=== PATIENT | male | born 1945 | race Caucasian/White ===

== ENCOUNTER 2020-06-29 12:14 | Outpatient (CLI) | payer MEDICARE | END 2020-06-29 23:59 | disposition home or self-care (01) | LOC: CVU 12:14 | PROVIDERS: ATTEND Internal Medicine Cardiovascular Disease | DX: I35.8 Other nonrheumatic aortic valve disorders (principal); I65.23 Occlusion and stenosis of bilateral carotid arteries; I25.10 Atherosclerotic heart disease of native coronary artery without angina pectoris; I11.9 Hypertensive heart disease without heart failure; E78.5 Hyperlipidemia, unspecified | CPT/HCPCS: 93306; 93356; 93880 ==

== ENCOUNTER 2020-07-22 15:12 | Emergency (ER) | payer MEDICARE ==
[~2020-07-22] VITALS: Ht 177.8 cm; Wt 86.7 kg
[2020-07-22 15:14] VITALS: BP 206/88
--- NOTE | 2020-07-22 15:25 | NUR ---
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 PATIENT FASTED FOR 14 HOURS FOR BLOOD WORK THAT WAS DONE THIS MORNING. PATIENT FELT SHAKY AND DIZZY THIS MORNING AFTER LAB DRAW, ATE "A COUPLE MUFFINS." A&O, JOZEF, BP 198/87 OTHER VSS, ACCOMPANIED BY , CALL LIGHT WITHIN REACH.
--- NOTE | 2020-07-22 15:50 | NUR ---
Patient given discharge instructions and they have confirmed that they understand the instructions. Patient stable and ambulatory with steady gait from ED with to private vehicle.
== END 2020-07-22 15:51 | disposition home or self-care (01) ==
LOC: ED 15:30
DX: E11.649 Type 2 diabetes mellitus with hypoglycemia without coma (principal); I10 Essential (primary) hypertension
CPT/HCPCS: 99281